=== PATIENT | female | born 1955 | race Caucasian/White ===

== ENCOUNTER → 2016-06-08 | Outpatient (CLI) | payer OTHER ==
[~2016-06-08] MED LIST: ALLOPURINOL300 MG; ASPIRIN81 M2; FISH OIL 1,0001 EAC1 PO; HUMULIN N100 UNITS/; IMDUR-ER30 M2 PO; ISOSORBIDE MONO60 M1 PO; JANUVIA PO; KLONOPIN1 MG PO; LANTUS100 UNITS/; LEVOTHYROXINE150 MCG PO; LIPITOR80 MG PO; LOPRESSOR PO; METFORMIN HCL500 M1 PO; MORPHINE SULFAT15 M3 PO; NITROGLYCERIN0.4 MG SL; PERCOCET 5/321 UDTAB DOB; PLAVIX PO; PRAVACHOL80 MG PO; PRINIVIL10 MG PO; PROTONIX PO; REGLAN10 MG PO; SKELAXIN PO; VITAMIN D34000 UNIT PO
[2016-06-08 10:45] LABS: ALBUMIN SERUM 3.6 g/dL (3.5-5.0); BILIRUBIN,TOTAL 0.7 mg/dL (0.2-2.0); BUN/CREATININE RATIO 12.5; CALCIUM SERUM 8.9 mg/dL (8.4-10.2); CREATININE SERUM 0.8 mg/dL (0.6-1.4); GLOM FILT RATE Estimated 80.2 mL/min (>60); POTASSIUM 4.2 mmol/L (3.5-5.1); PROTEIN TOTAL SERUM 6.9 g/dL (6.0-8.3)
== END | disposition home or self-care (01) ==
LOC: CLAB 09:26
PROVIDERS: Internal Medicine Endocrinology, Diabetes & Metabolism
DX: E11.65 Type 2 diabetes mellitus with hyperglycemia (principal); E03.9 Hypothyroidism, unspecified; Z95.1 Presence of aortocoronary bypass graft
CPT/HCPCS: 36415; 80053; 80061; 83036; 84443